=== PATIENT | female | born 1955 | race Caucasian/White ===

== ENCOUNTER 2022-07-05 09:36 | Outpatient (CLI) | payer MEDICARE, OTHER ==
--- NOTE | 2022-07-05 20:15 | DEXA Report ---
PROCEDURE: Dexa Spine and/or Hip INDICATIONS: HALFWAY STEROID USE TECHNIQUE: Dual energy x-ray absorptiometry (DXA) was performed on a [employer] System. Regions measur ed are the AP Spine, femoral neck, and if needed forearm. COMPARISON: None. FINDINGS: Lumbar Spine: Bone Mineral Density 0.76 g/cm/cm,T score -3.5, osteoporosis Left Hip: Bone Mineral Density 0.749 g/cm/cm,T score -2.1, moderate to severe osteopenia Left Femoral Neck: Bone Mineral Density 0.658 g/cm/cm, T score -2.7, moderate osteopenia (T score greater or equal to -1.0: NORMAL) (T score from -1.1 to -2.4: OSTEOPENIA) (T score less than or equal to -2.5 to: OSTEOPOROSIS) Impression: Osteoporosis in the lumbar spine as well as moderate to severe osteopenia in the left hip. Patients with diagnosis of osteoporosis or osteopenia should have regular bone mineral density assess ment. For those eligible for Medicare, routine testing is allowed once every 2 years. Testing frequ ency can be increased for patients who have rapidly progressing disease or for those who are receivin g medical therapy to restore bone mass. Reviewed by: Anais Gipson MD on 07/05/2022 8:14 PM PST Approved by: Anais Gipson MD on 07/05/2022 8:14 PM PST Station ID: [id number]
== END 2022-07-05 09:37 | disposition home or self-care (01) ==
LOC: DI 09:36
PROVIDERS: ATTEND Internal Medicine
DX: M81.0 Age-related osteoporosis without current pathological fracture (principal); Z79.52 Long term (current) use of systemic steroids

== ENCOUNTER 2022-07-05 09:46 | Outpatient (CLI) | payer MEDICARE, OTHER ==
--- NOTE | 2022-07-05 16:24 | Mammography Report ---
BILATERAL DIGITAL SCREENING MAMMOGRAM 3D/2D: 07/05/2022 CLINICAL: Routine screening. Comparison is made to exam dated: 06/27/2017 mammogram - [facility]. There are scattered areas of fibroglandular density in both breasts (category b / 25%-50% glandular t issue). No significant masses, calcifications, or other findings are seen in either breast. There has been no significant interval change. IMPRESSION: NEGATIVE There is no mammographic evidence of malignancy. A 1 year screening mammogram is recommended. Based on the Tyrer Cuzick model (a risk assessment model) the patients lifetime risk is 9.2% and her 10 year risk is 4.7%. According to the ACR, ACS, and NCCN guidelines, an annual breast MRI exam elsie g with mammogram is recommended if the patients lifetime risk is 20% or greater. This exam was interpreted at Station ID: [id number]. NOTE: For mammograms, a report in lay terms will be sent to the patient. Approximately 15% of breast malignancies will not be visualized mammographically. In the management of a palpable breast mass, a negative mammogram must not discourage biopsy of a clinically suspicious lesion. Electronically Signed By: Nathan glez/penrad:07/05/2022 11:45:24 ACR BI-RADS Category 1: Negative 3341F PARENCHYMAL PATTERN: (A) - The breast(s) demonstrate(s) scattered fibroglandular densities. BI-RADS CATEGORY: (1) - 1 RECOMMENDATION: (ANNUAL) - Recommend routine annual screening mammography. [id number] 1 year screening LATERALITY: (B)
== END 2022-07-05 09:47 | disposition home or self-care (01) ==
LOC: DI 09:46
PROVIDERS: ATTEND Internal Medicine
DX: Z12.31 Encounter for screening mammogram for malignant neoplasm of breast (principal)

== ENCOUNTER 2022-11-06 08:43 | Outpatient (CLI) | payer MEDICARE, OTHER ==
--- NOTE | 2022-11-06 11:15 | Ultrasound Report ---
COMPLETE ULTRASOUND OF LEFT BREAST AND AXILLA: 11/06/2022 CLINICAL: Palpable left axilla lump. Comparison is made to exams dated: 07/05/2022 mammogram - and 06/27/2017 mammogram - [facility]. Color flow ultrasound of the left breast four quadrants, retroareolar, and axilla regions was perfor med. Tapia scale images of the real-time examination were reviewed. There is a 5.7 cm x 6 cm x 6.1 cm oval fluid collection with complex internal choes in the left axill a. Adjacent prominent lymph nodes are present, measuring up to 1.6 x 0.9 and 1.6 x 1.2cm. IMPRESSION: PROBABLY BENIGN The 5.7 cm x 6 cm x 6.1 cm oval fluid collection is probably benign. Patient reports recent trauma to the area and possible decrease in size. Provided history is suggestive of hematoma and possible shilpi cent reactive lymph nodes. No definite vascular connection to suggest pseudoaneurysm. Reportedly non- tender, less likely abscess. Clinical evaluation is recommended and 1 month followup US is suggested for followup. If symptoms worsen or change, please obtain a CT with contrast to further evaluate as w ell. This exam was interpreted at Station ID: [id number]. Electronically Signed By: Nathan Flynn M.D. lc/:11/06/2022 09:24:00 Ultrasound BI-RADS: 3 Probably benign BI-RADS CATEGORY: (3) - 3 Ultrasound [id number] 1 month follow-up LATERALITY: (B)
== END 2022-11-06 08:44 | disposition home or self-care (01) ==
LOC: DI 08:43
PROVIDERS: ATTEND Internal Medicine
DX: R59.0 Localized enlarged lymph nodes (principal)

== ENCOUNTER 2023-12-09 08:12 | Emergency (ER) | payer MEDICARE, OTHER ==
[2023-12-09 08:26] VITALS: BP 170/92; O2SAT 97
--- NOTE | 2023-12-09 08:31 | ED Physician Documentation ---
PD HPI OPHTHO - Stated complaint Stated Complaint: RT EYE DISCHARGE - Chief complaint Chief Complaint: Heent - History obtained from History obtained from: Patient - History of Present Illness Timing - onset: Yesterday (about 5 pm) Timing - details: Abrupt onset, Still present Location: Right Quality / character: Burning, Aching Associated symptoms: Redness, Swelling, Matting (this morning when awoke, and the redness has increased.). No: Photophobia, Loss of vision Contributing factors: Other (she was working with a glue material on a project on table and some splattered back into her right eye. Then some Goo-Gone type material did as well. She rinsed out eye with artificial tears. Has persistent irritation of eye. Was more red and matted this morning.). No: Wears contacts Review of Systems Eyes: reports: Irritation. denies: Loss of vision, Photophobia PD PAST MEDICAL HISTORY - Past Medical History Past Medical History: Yes Cardiovascular: Hypertension Respiratory: Asthma HEENT: Glaucoma Psych: Anxiety - Past Surgical History Past Surgical History: No - Present Medications Home Medications: Ambulatory Orders Medication Instructions Recorded Confirmed Brinzolamide/Brimonidine Tart 11/17/15 [Simbrinza 1%-0.2% Eye Drops] Budesonide/Formoterol 160/4.5 11/17/15 [Symbicort] Bupropion HCl [Wellbutrin] 150 mg 11/17/15 FLUoxetine [PROzac] 20 mg 11/17/15 Quinapril HCl [Accupril] 40 mg 11/17/15 Sulfamethoxazole/Trimethoprim 1 each PO BID #14 tablet 11/17/15 [Sulfamethoxazole-Tmp Ds Tablet] Tiotropium [place] [Spiriva] 11/17/15 Travoprost 0.004% Ophth Drops 11/17/15 [Travatan Z] Xolair 11/17/15 predniSONE [Deltasone] 10 mg 11/17/15 Ketorolac 0.45% Ophth Drops 2 drops RIGHTEYE QID 3 Days #0.8 ml 12/09/23 [Acuvail] Ketorolac Tromethamine 3 drops RIGHTEYE QID 4 Days #10 ml 12/09/23 Ofloxacin 0.3% Ophth Drops 3 drops RIGHTEYE QID 4 Days #5 ml 12/09/23 [Ocuflox 0.3% Ophth Drops] - Allergies Allergies/Adverse Reactions: Allergies Allergy/AdvReac Type Severity Reaction Status Date / Time amoxicillin Allergy Hives Verified 12/09/23 08:15 - Social History Does the pt smoke?: Yes Smoking Status: Current every day smoker Does the pt drink ETOH?: No Does the pt have substance abuse?: No - Immunizations Immunizations are current?: Yes PD ED PE NORMAL - Vitals Vital signs reviewed: Yes - General General: Alert and oriented X 3, No acute distress, Well developed/nourished - HEENT HEENT: PERRL, EOMI, Other (redness of conjunctiva right eye. no FB/material noted. Dye staining did not show any uptake for abrasions/erosions nor for residual foreign material. ) Results - Vitals Vitals: Vital Signs - 24 hr 12/09/23 08:16 Temperature 36.4 C L Heart Rate 97 Respiratory 16 Rate Blood Pressure 170/92 H O2 Saturation 97 Oxygen O2 Source Room air PD Medical Decision Making - ED course Complexity details: reviewed results (no dye uptake. Presume just chemical conjunctivitis as would be quite quick for infection as yet. ), considered differential (chemical splatter to right eye, rinsed and cleansed with saline/eye artificial tears. Still red and with swelling, and this AM matting. ), d/w patient ED course: pharmacy did call back saying the initial Ketorolac Rx was not covered on the insurance. Generic version cheaper. I resent the ketoralac eye drops as non-specified strength for generic. Rx for antibiotic as well to have in case persists or increases. Departure - Departure Disposition: 01 Home, Self Care Clinical Impression: Acute chemical conjunctivitis Qualifiers: Laterality: right Qualified Code(s): H10.211 - Acute toxic conjunctivitis, right eye Condition: Stable Record reviewed to determine appropriate education?: Yes Prescriptions: Ketorolac 0.45% Ophth Drops [Acuvail] 2 drops RIGHTEYE QID 3 Days #0.8 ml Ketorolac Tromethamine 3 drops RIGHTEYE QID 4 Days #10 ml Ofloxacin 0.3% Ophth Drops [Ocuflox 0.3% Ophth Drops] 3 drops RIGHTEYE QID 4 Days #5 ml Comments: I do not see any signs of corneal abrasions or ulcerations. There is no residual material on the eye. It is obviously red and inflamed. We can try to improve this faster with some eye drop anti-inflammatories. I would use ketorolac/Toradol 2 drops 4 times a day for the next few days. Continue with moisturizing drops as needed for comfort as well. If the redness is not improving well over the next day or 2 or you have increasing redness or more discharge, then I would add the floxacillin antibiotic eyedrop. I was unable to find the best see Floxin prescription in my ordering system so I went with a similar 1 called ofloxacin. I sent these prescriptions to the [facility] in [place]. Recheck if not improved completely with the above treatments over the next several days. Forms: PCP List Discharge Date/Time: 12/09/23 09:07
== END 2023-12-09 09:07 | disposition home or self-care (01) ==
LOC: ED 08:12
DX: I10 Essential (primary) hypertension (principal); J45.909 Unspecified asthma, uncomplicated; F17.200 Nicotine dependence, unspecified, uncomplicated; Z79.899 Other long term (current) drug therapy; H10.211 Acute toxic conjunctivitis, right eye
CPT/HCPCS: 99283; 99284

== ENCOUNTER 2024-02-18 16:00 | Outpatient (CLI) | payer MEDICARE, OTHER | END 2024-02-18 23:59 | disposition EMS.NT | LOC: EMS 16:00 | DX: M79.652 Pain in left thigh (principal); R45.89 Other symptoms and signs involving emotional state; V09.00XA Pedestrian injured in nontraffic accident involving unspecified motor vehicles, initial encounter; Y93.89 Activity, other specified; Y92.89 Other specified places as the place of occurrence of the external cause ==